=== PATIENT | female | born 2000 | race Caucasian/White ===

== ENCOUNTER 2023-10-31 16:46 | Emergency (ER) | payer OTHER ==
[~2023-10-31] VITALS: Ht 160 cm; Wt 53.0 kg
[2023-10-31 17:01] VITALS: O2SAT 100
[2023-10-31] MEDS ORDERED: LIDOCAINE HCL/PF 1% 10 MG/ML 5ML VIAL INFIL NR (19:45)
[2023-10-31] MEDS ORDERED: BACITRACIN ZINC OINT UDPKT TOP ONE (19:45)
[2023-10-31] MEDS ORDERED: BACITRACIN ZINC OINT UDPKT TOP NR (19:45)
[2023-10-31] MEDS ORDERED: TETANUS, DIPHTHERIA, PERTUSSIS VAC/PF 0.5ML (>10YR OLD) IM ONE ×2 (19:45→22:00)
[2023-10-31] MEDS ORDERED: LIDOCAINE HCL/PF 1% 10 MG/ML 5ML VIAL INFIL ONE (19:45)
[2023-10-31 22:31] VITALS: BP 112/51; PULSE 86; RESP 16; TEMP 98.3
== END 2023-10-31 22:32 | disposition home or self-care (01) ==
LOC: ER 17:02
DX: S61.511A Laceration without foreign body of right wrist, initial encounter (principal); X58.XXXA Exposure to other specified factors, initial encounter; Y93.89 Activity, other specified; Y92.89 Other specified places as the place of occurrence of the external cause; Y99.8 Other external cause status
CPT/HCPCS: 73110; 90715; 12001; 90471; 99283; J3490; Z7610 ×3